=== PATIENT | female | born 2000 | race African-American/Black ===

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

== ENCOUNTER 2019-01-04 19:31 | Observation (INO) ==
[2019-01-04 20:17] LABS: Basophils # 0.1 K/mcL (0.0-0.2); Basophils % 0.4 %; Eosinophils # 0.2 K/mcL (0.0-0.6); Hematocrit 32.9 % (35.3-44.9); Hemoglobin 10.3 g/dL (11.5-15.4); Immature Granulocytes % 0.4 % (0-4); Lymphocytes # 2.1 K/mcL (0.6-4.6); Lymphocytes % 17.5 %; Mean Corpuscular HGB Conc 31.3 g/dL (31.6-35.5); Mean Corpuscular Hemoglobin 26.3 pg (28.0-33.3); Mean Corpuscular Volume 84.1 fL (83.0-100.0); Monocytes # 1.4 K/mcL (0.0-1.3); Monocytes % 11.3 %; Neutrophils # 8.3 K/mcL (1.6-8.9); Platelet Count 276 K/mcL (140-400); Red Blood Count 3.91 M/mcL (3.82-4.97); Red Cell Distribution Width 18.1 % (11.5-14.5); Segmented Neutrophils % 68.4 %; White Blood Count 12.1 K/mcL (4.3-11.1)
[2019-01-04] MEDS ORDERED: Ibuprofen 600 MG TABLET PO ONE (20:23)
[2019-01-04] MEDS ORDERED: 0.9 % Sodium Chloride 1,000 ML IVC ONE (20:23)
--- NOTE | 2019-01-04 20:32 | Emergency Department Note ---
Disposition Clinical Impression: Ureterolithiasis Disposition: Admitted As Inpatient Condition: Fair Referrals: NONE,PCP [Primary Care Provider] - Time of Disposition: 20:32 General Adult HPI - General Chief complaint: ED Abdominal Pain Stated complaint: Kidney stone Time Seen by Provider: 01/04/19 20:05 Source: patient Limitations: no limitations Nursing Notes Reviewed: Yes Vital Signs Reviewed: Yes - History of Present Illness Pain Scale: 8 - Related Data Previous Rx's Medication Instructions Recorded Vit37/Iron/Folic Acid 1 each PO QAM #30 tab.chew 04/01/18 [Prenata Chewable Tablet] Docusate [Colace] 100 mg PO BID #30 capsule 08/13/18 Ibuprofen [Motrin] 600 mg PO Q6HR PRN #30 tablet 08/13/18 Metoclopramide [Reglan] 10 mg IVP ONCE PRN vial 08/13/18 Ondansetron [Zofran] 4 mg IVP ONCE PRN vial 08/13/18 Simethicone [Gas-X] 80 mg PO TID PRN tab.chew 08/13/18 Cephalexin [Keflex] 500 mg PO BID #14 capsule 09/30/18 Ondansetron ODT [Zofran ODT] 4 mg SL Q6HR #10 tab.rapdis 09/30/18 Allergies Allergy/AdvReac Type Severity Reaction Status Date / Time Penicillins Allergy Rash Verified 09/29/18 22:46 Past Medical History - Past Medical History Medical history: Reports: no medical history Surgical history: Reports: Psychiatric history: Reports: anxiety, depression - Social History Smoking Status: Current every day smoker Smokeless Tobacco Status: No Alcohol use: Reports: none Drug use: Reports: marijuana Physical Exam - General Limitations: no limitations General appearance: alert, in no apparent distress Course Vital Signs Temperature 98.5 F 01/04/19 19:51 Pulse Rate 107 01/04/19 19:51 Respiratory Rate 16 01/04/19 19:51 Blood Pressure 120/76 01/04/19 19:51 O2 Sat by Pulse Oximetry 100 01/04/19 19:51 Temperature 98.5 F 01/04/19 19:51 Pulse Rate 107 01/04/19 19:51 Respiratory Rate 16 01/04/19 19:51 Blood Pressure 120/76 01/04/19 19:51 O2 Sat by Pulse Oximetry 100 01/04/19 19:51 Oxygen Delivery Oxygen Delivery Room Air Medical Decision Making - Lab Data Result diagrams: 01/04/19 20:06 Lab Results 01/04/19 Range/Units 20:06 WBC 12.1 H (4.3-11.1) K/mcL RBC 3.91 (3.82-4.97) M/mcL Hgb 10.3 L (11.5-15.4) g/dL Hct 32.9 L (35.3-44.9) % MCV 84.1 (83.0-100.0) fL MCH 26.3 L (28.0-33.3) pg MCHC 31.3 L (31.6-35.5) g/dL RDW 18.1 H (11.5-14.5) % Plt Count 276 (140-400) K/mcL MPV 10.0 (9.4-12.4) fL Immature Gran % 0.4 (0-4) % Seg Neutrophils % 68.4 % Lymphocytes % 17.5 % Monocytes % 11.3 % Eosinophils % 2.0 % Basophils % 0.4 % Neutrophils # 8.3 (1.6-8.9) K/mcL Lymphocytes # 2.1 (0.6-4.6) K/mcL Monocytes # 1.4 H (0.0-1.3) K/mcL Eosinophils # 0.2 (0.0-0.6) K/mcL Basophils # 0.1 (0.0-0.2) K/mcL Attestation Statement - Attestation Attestation: I examined this patient and my medical decision-making was reviewed with the [facility] Physician. I agree with the documented findings, disposition and treatment plan as described except to the extent set forth below. Patient presents to the ED with flank pain. Patient was seen at [facility] last night and diagnosed with a 14 mm ureteral stone. She was unable to secure outpatient follow-up until next week. She states she is in pain and she cannot tolerate it. On examination she appears comfortable. She does have CVA tenderness on percussion. Plan. Discussed with urology who will admit to their service.
--- NOTE | 2019-01-04 20:33 | Emergency Department Note ---
Disposition Clinical Impression: Ureterolithiasis Disposition: Admitted As Inpatient Condition: Fair Time of Disposition: 20:31 Abdominal Pain HPI - General Chief Complaint: ED Abdominal Pain Stated Complaint: Kidney stone Time Seen by Provider: 01/04/19 20:05 Source: patient Mode of arrival: ambulatory Limitations: no limitations Nursing Notes Reviewed: Yes Vital Signs Reviewed: Yes - History of Present Illness HPI Narrative: 18-year-old female history of kidney stones presents to the emergency department with worsening right flank pain. Symptoms started yesterday she was evaluated at outside facility where they discovered she had a 14 mm stone. She reports a history of kidney stones in the past that has not required any surgical intervention as they have passed on their own. She denies any urinary symptoms. She is been taken Percocet with minimal relief. She is always in constant pain. She reports some nausea denies any vomiting. Nothing seems to make it worse. She has an urology follow-up appointment until next week. History of cholecystectomy. Pt Subjective Complaint: flank pain Onset (ago): day(s) Consistency: intermittent Location: R flank Pain Scale: 8 - Related Data Home Medications Medication Instructions Recorded Confirmed No Known Home Drugs 01/04/19 01/04/19 Allergies Allergy/AdvReac Type Severity Reaction Status Date / Time Penicillins Allergy Rash Verified 09/29/18 22:46 All systems ED: reviewed and negative except as stated. Review of Systems: As Per HPI Constitutional: Denies: fever, chills Respiratory: Denies: dyspnea Gastrointestinal: Reports: nausea. Denies: vomiting, diarrhea Genitourinary: Denies: dysuria, hematuria Abdominal Pain PMH - Past Medical History Medical history: Reports: no medical history Female Surgical History: Reports: Adenoidectomy, , Tonsillectomy Psychiatric history: Reports: anxiety, depression - Social History Smoking status: Current every day smoker Alcohol use: Reports: none Drug use: Reports: marijuana Physical Exam - General Limitations: no limitations General appearance: alert, in distress (Appears uncomfortable favoring the right flank) - Head Head exam: atraumatic, normocephalic, normal inspection - Eye Eye exam: Present: normal appearance, EOMI - ENT ENT exam: normal exam, normal oropharynx, mucous membranes moist - Neck Neck exam: Present: normal inspection, full ROM, trachea midline - Chest Chest inspection: Present: normal inspection, symmetric chest wall rise - Respiratory Respiratory exam: Present: normal lung sounds bilaterally. Absent: respiratory distress, wheezes - Cardiovascular Cardiovascular exam: Present: regular rate, normal rhythm, normal heart sounds - Abdominal Exam Abdominal exam: Present: soft, Non-Tender, normal bowel sounds. Absent: tenderness, distention, guarding, rebound, rigidity, Kaur's sign, tenderness at McBurney's Point Abdominal tenderness: Absent: RUQ - Extremities Exam Extremities exam: Present: normal inspection, full ROM. Absent: tenderness, pedal edema - Back Exam Back exam: Present: normal inspection, full ROM, CVA tenderness (R). Absent: tenderness, CVA tenderness (L) - Neurological Exam Neurological exam: Present: alert, oriented X3 - Psychiatric Psychiatric exam: Present: normal affect, normal mood - Skin Skin exam: Present: warm, dry, intact, normal color. Absent: rash, cyanosis, diaphoresis Course Course Narrative: Patient presents with known right kidney stone seen on CT at outside facility. She had brought her disc from outside facility which we will upload to our radiology department. She has printed pictures that show the measurements of the stone. She presents for worsening pain. Will obtain an IV given her some fluids for symptom control. Will evaluate for any evidence of acute kidney injury as well as urinary tract infection. Will consult with urology for possible stent placement or stone removal. She is agreeable to this plan. - Consultations Consultation #1: Okay to admit to urologist Dr. Willis for kidney stone. Vital Signs Temperature 98.5 F 01/04/19 19:51 Pulse Rate 107 01/04/19 19:51 Respiratory Rate 16 01/04/19 19:51 Blood Pressure 120/76 01/04/19 19:51 O2 Sat by Pulse Oximetry 100 01/04/19 19:51 Temperature 98.5 F 01/04/19 19:51 Pulse Rate 107 01/04/19 19:51 Respiratory Rate 16 01/04/19 19:51 Blood Pressure 120/76 01/04/19 19:51 O2 Sat by Pulse Oximetry 100 01/04/19 19:51 Oxygen Delivery Oxygen Delivery Room Air Abdominal Pain - MDM Narrative Medical decision making narrative: Patient was discussed with my attending physician who agrees with ED management and final disposition. They independently evaluated the patient. Please refer to their attestation to this encounter for additional information. This note was generated by [employer] voice recognition software and as a result grammatical or spelling errors may occur using this program. - Differential Diagnosis Differential Diagnosis: Likely: calculus of kidney - Medical Records Medical records reviewed: Yes I reviewed the patient's medical records. - Lab Data Lab results reviewed: Yes I reviewed the patient's lab results. Result diagrams: 01/04/19 20:06 01/04/19 20:06 Lab Results 01/04/19 01/04/19 Range/Units 20:06 20:06 WBC 12.1 H (4.3-11.1) K/mcL RBC 3.91 (3.82-4.97) M/mcL Hgb 10.3 L (11.5-15.4) g/dL Hct 32.9 L (35.3-44.9) % MCV 84.1 (83.0-100.0) fL MCH 26.3 L (28.0-33.3) pg MCHC 31.3 L (31.6-35.5) g/dL RDW 18.1 H (11.5-14.5) % Plt Count 276 (140-400) K/mcL MPV 10.0 (9.4-12.4) fL Immature Gran % 0.4 (0-4) % Seg Neutrophils % 68.4 % Lymphocytes % 17.5 % Monocytes % 11.3 % Eosinophils % 2.0 % Basophils % 0.4 % Neutrophils # 8.3 (1.6-8.9) K/mcL Lymphocytes # 2.1 (0.6-4.6) K/mcL Monocytes # 1.4 H (0.0-1.3) K/mcL Eosinophils # 0.2 (0.0-0.6) K/mcL Basophils # 0.1 (0.0-0.2) K/mcL Sodium 135 L (136-145) mEq/L Potassium 3.4 L (3.5-5.1) mEq/L Chloride 107 (98-107) mEq/L Carbon Dioxide 25 (23-29) mEq/L BUN 13 (6-20) mg/dL Creatinine 1.25 H (0.60-1.20) mg/dL Est GFR ( Amer) > 60 Est GFR (Non-Af Amer) 55 BUN/Creatinine Ratio 10 (6-26) Glucose 67 L (70-105) mg/dL Calculated Osmolality 278 L (280-300) Calcium 9.0 (8.6-10.3) mg/dL Total Bilirubin 0.4 (0.3-1.0) mg/dL Direct Bilirubin 0.1 (0.0-0.2) mg/dL Indirect Bilirubin 0.3 (0.0-1.2) mg/dL AST 12 L (13-39) Units/L ALT 10 (7-52) Units/L Alkaline Phosphatase 72 (34-104) Units/L Serum Total Protein 6.5 (6.4-8.9) g/dL Albumin 3.9 (3.5-5.7) g/dL Globulin 2.6 (2.4-3.5) g/dL Albumin/Globulin Ratio 1.5 (1.1-2.2) Amylase 48 (29-103) Units/L Lipase 15 (11-82) Units/L
[2019-01-04] MEDS ORDERED: *HR* FentaNYL (PF) 100 MCG/2 ML VIAL IVP ONE (20:36)
[2019-01-04 20:37] LABS: Alanine Aminotransferase 10 Units/L (7-52); Albumin 3.9 g/dL (3.5-5.7); Albumin/Globulin Ratio 1.5 (1.1-2.2); Alkaline Phosphatase 72 Units/L (34-104); Amylase 48 Units/L (29-103); Aspartate Amino Transferase 12 Units/L (13-39); BUN/Creatinine Ratio 10 (6-26); Bilirubin,Direct 0.1 mg/dL (0.0-0.2); Bilirubin,Indirect 0.3 mg/dL (0.0-1.2); Bilirubin,Total 0.4 mg/dL (0.3-1.0); Blood Urea Nitrogen 13 mg/dL (6-20); Carbon Dioxide 25 mEq/L (23-29); Chloride 107 mEq/L (98-107); Globulin 2.6 g/dL (2.4-3.5); Glucose 67 mg/dL (70-105); Lipase 15 Units/L (11-82); Osmolality,Calculated 278 (280-300); Potassium 3.4 mEq/L (3.5-5.1); Sodium 135 mEq/L (136-145); Total Protein 6.5 g/dL (6.4-8.9); eGFR For African Americans > 60; eGFR For Non-African Americans 55
[2019-01-04] MEDS ORDERED: Ondansetron 4 MG/2 ML VIAL IVP PRN (21:08)
[2019-01-04] MEDS ORDERED: *HR* Promethazine 25 MG/ML VIAL IVP PRN (21:08)
[2019-01-04] MEDS ORDERED: Naloxone 0.4 MG/ML INJ IVP PRN (21:08)
[2019-01-04] MEDS ORDERED: *HR* Belladonna Alkaloids/Opium 30 MG RECTAL SUPPOSITORY RC PRN (21:08)
[2019-01-04] MEDS ORDERED: Acetaminophen IV 1,000 MG/100 ML INFUS..BTL IVPB PRN (21:08)
[2019-01-04] MEDS ORDERED: *HR* OxyCODONE Immed Rel 5 MG TABLET PO PRN (21:08)
[2019-01-04] MEDS ORDERED: Hyoscyamine SL 0.125 MG TAB.SUBL SL PRN (21:08)
[2019-01-04] MEDS ORDERED: *HR* HYDROcodone/Acet 5/325 mg TABLET PO PRN (21:08)
--- NOTE | 2019-01-04 21:20 | Urology History & Physical ---
Date of Encounter: 01/05/19 Time of Encounter: 21:18 Assessment and Plan (1) Ureteral stone with hydronephrosis Current Visit: Yes Status: Acute will proceed with cystoscopy retrograde pyelogram and JJ stent placement. this will relieve obstruction. will require staged management of the stone. (2) Flank pain Current Visit: Yes Status: Acute hopefully stent will resolve the discomfort (3) Leukocytosis Current Visit: Yes Status: Acute UA with culture. Levaquin started. rocephin was given in the ER. may be reactive rather than infection Qualifiers: Leukocytosis type: other Qualified Code(s): D72.828 - Other elevated white blood cell count (4) Acute renal insufficiency Current Visit: Yes Status: Acute hydration and planned stent. avoid NSAIDS. one dose of toradol given in ER History of Present Illness Chief complaint: right flank pain HPI: Ms. Cortez is a 18 year old female with hx of stones. ER visit yesterday with a 14 mm proximal ureteral stone. pain continues and presents to [place] ER today. no fever. +nausea. doesnt feel well. Past Med Surg Social Fam HX - Past Medical History Medical history: no medical history Psychiatric history: anxiety, depression - Past Surgical History Surgical History: Additional surgical history: 2018, T&A - Social History Smoking Status: Current every day smoker Smokeless Tobacco Status: No Alcohol use: none Drug use: marijuana - Family History Father Family Member Ethnicity: Non- Living Status: Still Living Hx Family Cardiac Disorders: Yes (HTN) Hx Family Respiratory Disorders: No Hx Family Cancer: No Hx Family GI Disorders: No Hx Family Endocrine Disorder: No Hx Family Neuromuscular Disorders: No Hx Family Neurologic Disorders: No Hx Family HEENT Disorders: No Hx Family Autoimmune Disorders: No Medications and Allergies No Known Home Drugs 01/04/19 [History] Allergy/AdvReac Type Severity Reaction Status Date / Time Penicillins Allergy Rash Verified 09/29/18 22:46 Review of Systems - Constitutional fatigue, no fever(s) - EENT Nose, mouth and throat: no dizziness - Cardiovascular no chest pain - Respiratory no cough - Gastrointestinal abdominal pain, nausea - Genitourinary Genitourinary: flank pain - Musculoskeletal back pain, no numbness - Integumentary no erythema - Neurological no confusion - Psychiatric anxiety - Hematologic/Lymphatic no easy bleeding - Allergic/Immunologic no throat swelling Exam Initial Vital Signs Temp Pulse Resp BP Pulse Ox 98.5 F 107 16 120/76 100 01/04/19 19:51 01/04/19 19:51 01/04/19 19:51 01/04/19 19:51 01/04/19 19:51 - General physical appearance Present: well developed, no distress - Eyes Present: PERRL, conjunctiva is clear - ENT Present: normal nares, no congestion - Neck Present: no masses, no lymphadenopathy - Respiratory Present: normal respiratory effort - Cardiovascular Cardiovascular exam IM: RRR - Abdomen Abdomen: Present: soft, suprapubic tenderness - Integumentary Present: no rash - Neurologic Present: normal coordination. Absent: disoriented, confused - Additional Findings some CVA tenderness Urology Results - Labs 01/04/19 20:06 01/04/19 20:06 Abnormal lab results WBC 12.1 K/mcL (4.3-11.1) H 01/04/19 20:06 Hgb 10.3 g/dL (11.5-15.4) L 01/04/19 20:06 Hct 32.9 % (35.3-44.9) L 01/04/19 20:06 MCH 26.3 pg (28.0-33.3) L 01/04/19 20:06 MCHC 31.3 g/dL (31.6-35.5) L 01/04/19 20:06 RDW 18.1 % (11.5-14.5) H 01/04/19 20:06 Monocytes # 1.4 K/mcL (0.0-1.3) H 01/04/19 20:06 Sodium 135 mEq/L (136-145) L 01/04/19 20:06 Potassium 3.4 mEq/L (3.5-5.1) L 01/04/19 20:06 Creatinine 1.25 mg/dL (0.60-1.20) H 01/04/19 20:06 Glucose 67 mg/dL (70-105) L 01/04/19 20:06 Calculated Osmolality 278 (280-300) L 01/04/19 20:06 AST 12 Units/L (13-39) L 01/04/19 20:06 Diabetes panel 01/04/19 Range/Units 20:06 Sodium 135 L (136-145) mEq/L Potassium 3.4 L (3.5-5.1) mEq/L Chloride 107 (98-107) mEq/L Carbon Dioxide 25 (23-29) mEq/L BUN 13 (6-20) mg/dL Creatinine 1.25 H (0.60-1.20) mg/dL Glucose 67 L (70-105) mg/dL Calcium 9.0 (8.6-10.3) mg/dL AST 12 L (13-39) Units/L ALT 10 (7-52) Units/L Alkaline Phosphatase 72 (34-104) Units/L Albumin 3.9 (3.5-5.7) g/dL Calcium panel 01/04/19 Range/Units 20:06 Calcium 9.0 (8.6-10.3) mg/dL Albumin 3.9 (3.5-5.7) g/dL Pituitary panel 01/04/19 Range/Units 20:06 Sodium 135 L (136-145) mEq/L Potassium 3.4 L (3.5-5.1) mEq/L Chloride 107 (98-107) mEq/L Carbon Dioxide 25 (23-29) mEq/L BUN 13 (6-20) mg/dL Creatinine 1.25 H (0.60-1.20) mg/dL Glucose 67 L (70-105) mg/dL Calcium 9.0 (8.6-10.3) mg/dL Adrenal panel 01/04/19 Range/Units 20:06 Sodium 135 L (136-145) mEq/L Potassium 3.4 L (3.5-5.1) mEq/L Chloride 107 (98-107) mEq/L Carbon Dioxide 25 (23-29) mEq/L BUN 13 (6-20) mg/dL Creatinine 1.25 H (0.60-1.20) mg/dL Glucose 67 L (70-105) mg/dL Calcium 9.0 (8.6-10.3) mg/dL Total Bilirubin 0.4 (0.3-1.0) mg/dL AST 12 L (13-39) Units/L ALT 10 (7-52) Units/L Alkaline Phosphatase 72 (34-104) Units/L Albumin 3.9 (3.5-5.7) g/dL All other labs normal.
[2019-01-04] MEDS: 0.9 % Sodium Chloride 1,000 ML IVC SCH (21:36)
[2019-01-05 05:47] LABS: Bilirubin,Urine Negative (Negative); Blood,Urine Trace (Negative); Clarity,Urine Clear (Clear); Color,Urine Yellow (Yellow); Glucose,Urine (UA) Normal (Normal); Ketones,Urine Negative (Negative); Leukocyte Esterase,Urine Moderate (Negative); Nitrite,Urine Negative (Negative); PH,Urine 6.5 pH Units (5.0-8.0); Protein,Urine Negative (Neg-Trace); Specific Gravity,Urine 1.016 (1.010-1.025); Urobilinogen,Urine Normal (Normal)
[2019-01-05 05:48] LABS: Bacteria,Urine None Seen per hpf (None-Few); Hyaline Casts,Urine None Seen per lpf (None-Few); Squamous Epithelial Cell,Urine Many per lpf (None-Few); WBC,Urine 30-50 per hpf (0-3)
[2019-01-05] MEDS: 0.9 % Sodium Chloride 1,000 ML IVC SCH (08:30)
[2019-01-05] MEDS ORDERED: levoFLOXacin 500 MG TABLET PO SCH (09:00)
[2019-01-05] MEDS ORDERED: Albuterol 2.5 MG/3 ML NEBULIZER IH ONE (11:08)
[2019-01-05] MEDS ORDERED: Acetaminophen IV 1,000 MG/100 ML INFUS..BTL IVPB ONE (11:08)
--- NOTE | 2019-01-05 11:08 | Anesthesia Evaluation PreOp ---
Date of Encounter: 01/05/19 Time of Encounter: 11:40 - Past History Planned Operation: cystoscopy, stent Cardiac History: Denies any Significant Hx Pulmonary History: Smoker [employer] History: Denies Any Significant HX Other Medical History: Denies Any Significant HX Anesthesia History: No Prior Anesthetic Complications, Past Anesthesia Test: Negative Alcohol Use: none Drug use: marijuana (occasional) Medications and Allergies No Known Home Drugs 01/04/19 [History] Allergy/AdvReac Type Severity Reaction Status Date / Time Penicillins Allergy Rash Verified 09/29/18 22:46 - Meds/Allergy Pre-op Review Medications Reviewed: Yes Allergies Reviewed: Yes Beta Blockers on Current Med List: No Anesthesia Results - Labs 01/04/19 20:06 01/04/19 20:06 Anesthesia Exam Selected Entries 01/05/19 10:24 Temperature 98.4 F Pulse Rate 92 Respiratory Rate 15 Blood Pressure 111/70 O2 Sat by Pulse Oximetry 97 Weight: 82 kg. BMI 30 NPO (# of Hours): over 8 hours - HEENT Pupil (Motor): Pupils equal Mallampati: II Teeth: Normal Oral Opening: Greater than 3 - Cardiac Rhythm: Regular Murmur: None - Pulmonary Breath Sounds: bilateral Clear Respiratory Effort: Symmetrical Anesthesia Assess/Plan ASA Score: 2 Level of consciousness: Cooperative Anesthetic Plan: General Monitoring Plan: Standard Monitors Recovery Plan: PACU (Discussed GA, risks. Agreed to proceed.)
[2019-01-05] MEDS ORDERED: Albuterol 2.5 MG/3 ML NEBULIZER ONE (11:35)
[2019-01-05] MEDS ORDERED: Isovue-300 50 ML VIAL ONE (12:07)
[2019-01-05] MEDS ORDERED: Lidocaine -MPF 2% 2 ML VIAL ONE (12:49)
[2019-01-05] MEDS ORDERED: *HR* Midazolam HCl 2 MG/2 ML VIAL ONE (12:49)
[2019-01-05] MEDS ORDERED: Dexamethasone 4 MG/ML VIAL ONE (12:49)
[2019-01-05] MEDS ORDERED: *HR* Propofol 200 MG/20 ML VIAL IVP ONE (12:49)
[2019-01-05] MEDS ORDERED: *HR* FentaNYL (PF) 100 MCG/2 ML VIAL ONE (12:49)
[2019-01-05] MEDS ORDERED: Ondansetron 4 MG/2 ML VIAL ONE (12:49)
--- NOTE | 2019-01-05 12:59 | Operative Note ---
Date of procedure: 01/05/19 Pre-op diagnosis: 1.4 cm right UPJ stone Post-op diagnosis: same Procedure: right ESWL Anesthesia: GETA Surgeon: Corey Willis Was there an delivery driver assistant present: No Estimated blood loss (cc): 0 Specimen: none Condition: stable Disposition: PACU Procedure in Detail: PROCEDURE IN DETAIL: Patient was taken back to the operating room, positioned supine on the operating table. Anesthesia was applied without complication. They were moved into dorsal lithotomy. Careful attention was maintained to cushion all pressure points for patient's safety. They were prepped and draped in sterile fashion. Time-out was performed with the proper patient and pr ocedure. A 21-Italian rigid cystoscope was inserted into the bladder without difficulty. Systematic examination of bladder revealed no abnormalities. The ureteral orifice was cannulated using a 5-Italian ureteral Catheter and a retrograde pyelogram was performed using Isovue. A filling defect was identified which corresponded to the stone at the right UPJ.. At that point, a zip wire was placed through the 5-Italian and confirmed in the renal pelvis with fluoroscopy. The stone was quite impacted at this location but I was able to manipulate the stone back into the renal pelvis. A 4.8 x 26 ureteral stent was placed over the zip wire under fluoroscopy without complication. No dangle string was left attached.
--- NOTE | 2019-01-05 13:01 | Discharge Summary ---
Orders not resulted at time of discharge: Pending orders 01/05/19 05:05 Culture,Urine [RM] Stat Date of Encounter: 01/05/19 Time of Encounter: 13:01 - Discharge Diagnosis (1) Ureteral stone with hydronephrosis Priority: Primary Status: Resolved (2) Flank pain Priority: Secondary Status: Resolved (3) Leukocytosis Priority: Secondary Status: Suspected Qualifiers: Leukocytosis type: other Qualified Code(s): D72.828 - Other elevated white blood cell count (4) Acute renal insufficiency Priority: Secondary Status: Suspected - Hospital Course Hospital course: Ms. Cortez is a 18 year old female with a 1.4 cm right ureteropelvic junction stone with hydronephrosis and intractable pain. Status post ureteral s tent placement. Plan to discharge today as long as patient's vital signs are stable and pain remains controlled. We will plan outpatient surgery for the stone Time spent discussing smoking cessation with patient: 3 to 10 minutes - Time Spent with Patient Total time spent providing and/or coordinating discharge services: Less than 30 minutes Labs on day of discharge: Labs from last 24 hours 01/05/19 01/05/19 01/04/19 05:05 05:05 20:06 WBC RBC Hgb Hct MCV MCH MCHC RDW Plt Count MPV Immature Gran % Seg Neutrophils % Lymphocytes % Monocytes % Eosinophils % Basophils % Neutrophils # Lymphocytes # Monocytes # Eosinophils # Basophils # Sodium 135 L Potassium 3.4 L Chloride 107 Carbon Dioxide 25 BUN 13 Creatinine 1.25 H Est GFR ( Amer) > 60 Est GFR (Non-Af Amer) 55 BUN/Creatinine Ratio 10 Glucose 67 L Calculated Osmolality 278 L Calcium 9.0 Total Bilirubin 0.4 Direct Bilirubin 0.1 Indirect Bilirubin 0.3 AST 12 L ALT 10 Alkaline Phosphatase 72 Serum Total Protein 6.5 Albumin 3.9 Globulin 2.6 Albumin/Globulin Ratio 1.5 Amylase 48 Lipase 15 Urine Color Yellow Urine Clarity Clear Urine pH 6.5 Ur Specific [place] 1.016 Urine Protein Negative Urine Glucose (UA) Normal Urine Ketones Negative Urine Blood Trace H Urine Nitrite Negative Urine Bilirubin Negative Urine Urobilinogen Normal Ur Leukocyte Esterase Moderate H Urine Microscopic RBC 5-15 H Urine Microscopic WBC 30-50 H Ur Squamous Epith Cells Many H Urine Bacteria None Seen Hyaline Casts None Seen Ur Culture Indicated? YES A Urine Test Negative 01/04/19 20:06 WBC 12.1 H RBC 3.91 Hgb 10.3 L Hct 32.9 L MCV 84.1 MCH 26.3 L MCHC 31.3 L RDW 18.1 H Plt Count 276 MPV 10.0 Immature Gran % 0.4 Seg Neutrophils % 68.4 Lymphocytes % 17.5 Monocytes % 11.3 Eosinophils % 2.0 Basophils % 0.4 Neutrophils # 8.3 Lymphocytes # 2.1 Monocytes # 1.4 H Eosinophils # 0.2 Basophils # 0.1 Sodium Potassium Chloride Carbon Dioxide BUN Creatinine Est GFR ( Amer) Est GFR (Non-Af Amer) BUN/Creatinine Ratio Glucose Calculated Osmolality Calcium Total Bilirubin Direct Bilirubin Indirect Bilirubin AST ALT Alkaline Phosphatase Serum Total Protein Albumin Globulin Albumin/Globulin Ratio Amylase Lipase Urine Color Urine Clarity Urine pH Ur Specific [place] Urine Protein Urine Glucose (UA) Urine Ketones Urine Blood Urine Nitrite Urine Bilirubin Urine Urobilinogen Ur Leukocyte Esterase Urine Microscopic RBC Urine Microscopic WBC Ur Squamous Epith Cells Urine Bacteria Hyaline Casts Ur Culture Indicated? Urine Test Preliminary micro results at discharge 01/05/19 05:05 Urine Culture - Preliminary Urine,Clean Catch Culture is incubating. - Discharge Medications Prescriptions: New levoFLOXacin [Levaquin] 500 mg PO DAILY #7 tablet HYDROcodone/Acet 5/325 mg [[place] 5-325 mg] 1 tab PO Q4H PRN 5 Days #15 tablet PRN Reason: Mild To Moderate Pain Home Medications: HYDROcodone/Acet 5/325 mg [[place] 5-325 mg] 1 tab PO Q4H PRN 5 Days #15 tablet 01/05/19 [Rx] levoFLOXacin [Levaquin] 500 mg PO DAILY #7 tablet 01/05/19 [Rx] Allergies/Adverse Reactions: Allergy/AdvReac Type Severity Reaction Status Date / Time Penicillins Allergy Rash Verified 09/29/18 22:46 Date of admission: 01/04/19 20:37 Primary care physician: PCP NONE Discharging clinician: Corey Willis Anticipated date of discharge: 01/05/19 Exam Initial Vital Signs Temp Pulse Resp BP Pulse Ox 98.5 F 107 16 120/76 100 01/04/19 19:51 01/04/19 19:51 01/04/19 19:51 01/04/19 19:51 01/04/19 19:51 - General physical appearance Present: well developed, no distress - Patient Status Disposition: Home, Self-Care Condition: Good Functional capacity at discharge: independent ambulation Overall status at discharge: patient is progressing back to baseline - Discharge Instructions Follow Up With: Lila Booker MD [Partnered Physician] - Corey Willis MD [Partnered Physician] - (my office will call with followup surgery to address the stone) Additional Instructions: No activity restrictions. Expect some increase in urgency, frequency, burning with urination, blood in the urine with the stent in place My office will contact patient to schedule follow-up surgery for the kidney stone Call if symptoms are severe or fever over 101 degrees - Diet and Activity Activity: increase activity as tolerated Diet: advance to your usual diet
--- NOTE | 2019-01-05 13:27 | Anesthesia Evaluation Post Op ---
Date of Encounter: 01/05/19 Time of Encounter: 13:27 - Vital Signs Vital Signs: Vital Signs/O2 Sat, Most Current Temp Pulse Resp BP Pulse Ox 99.2 F 93 16 117/73 99 01/05/19 12:58 01/05/19 13:08 01/05/19 13:08 01/05/19 13:08 01/05/19 13:08 - Lungs Lungs: Clear Ascult./Percussion - Airway Airway: Non-obstructed - Cardiovascular Regular Rate - Mental Status Mental Status: Alert & Oriented, Answers Appropriately - Pain Pain Scale: 0 Pain Scale used: Numeric (1 - 10) - Nausea Vomiting Nausea Vomiting: Not Present - Hydration Hydration: Ice chips, Has not voided - Discharge PostOp Status: Transfer Patient to floor
[2019-01-05] MEDS ORDERED: *HR* Promethazine 25 MG/ML VIAL IVP PRN (13:37)
[2019-01-05] MEDS ORDERED: *HR* Belladonna Alkaloids/Opium 30 MG RECTAL SUPPOSITORY RC PRN (13:37)
[2019-01-05] MEDS ORDERED: *HR* HYDROcodone/Acet 5/325 mg TABLET PO PRN (13:37)
[2019-01-05] MEDS ORDERED: Ondansetron 4 MG/2 ML VIAL IVP PRN (13:37)
[2019-01-05] MEDS ORDERED: *HR* OxyCODONE Immed Rel 5 MG TABLET PO PRN (13:37)
[2019-01-05] MEDS ORDERED: Naloxone 0.4 MG/ML INJ IVP PRN (13:37)
[2019-01-05] MEDS ORDERED: Acetaminophen IV 1,000 MG/100 ML INFUS..BTL IVPB PRN (13:37)
[2019-01-05] MEDS ORDERED: Hyoscyamine SL 0.125 MG TAB.SUBL SL PRN (13:37)
[2019-01-05 14:55] VITALS: BP 134/87
[2019-01-06] MEDS ORDERED: levoFLOXacin 500 MG TABLET PO SCH (09:00)
== END 2019-01-05 15:33 | disposition home or self-care (01) ==
LOC: EMEROOARM 19:31 → 3ANU 19:31
PROVIDERS: ADMIT Urology; ATTEND Urology

== ENCOUNTER 2019-01-27 02:02 | Observation (INO) ==
[2019-01-27] MEDS ORDERED: 0.9 % Sodium Chloride 250 ML ONE (04:39)
[2019-01-27] MEDS ORDERED: Naloxone 0.4 MG/ML INJ IVP PRN ×2 (04:50→04:54)
[2019-01-27] MEDS ORDERED: Ondansetron 4 MG/2 ML VIAL IVP PRN (04:50)
[2019-01-27] MEDS ORDERED: Ketorolac 30 MG/ML VIAL IVP PRN (04:54)
[2019-01-27] MEDS ORDERED: 0.9 % Sodium Chloride 1,000 ML IVC SCH (05:00)
[2019-01-27 05:53] LABS: Bilirubin,Urine Negative (Negative); Blood,Urine Large (Negative); Clarity,Urine Cloudy (Clear); Color,Urine Yellow (Yellow); Glucose,Urine (UA) Normal (Normal); Ketones,Urine Negative (Negative); Leukocyte Esterase,Urine Small (Negative); Nitrite,Urine Negative (Negative); Protein,Urine 100 mg/dL (Neg-Trace); Specific Gravity,Urine > 1.030 (1.010-1.025); Urobilinogen,Urine Normal (Normal)
[2019-01-27 05:54] LABS: Bacteria,Urine None Seen per hpf (None-Few); Hyaline Casts,Urine None Seen per lpf (None-Few); RBC,Urine TNTC per hpf (0-3); Squamous Epithelial Cell,Urine Many per lpf (None-Few); WBC,Urine 15-30 per hpf (0-3)
[2019-01-27 06:35] LABS: Amphetamine Screen,Urine Positive ng/mL (Cutoff=1000); Barbiturate Screen,Urine Negative ng/mL (Cutoff=200)
[2019-01-27 06:37] LABS: Benzodiazepines Screen,Urine Negative ng/mL (Cutoff=300); Cannabinoid Screen,Urine Positive ng/mL (Cutoff = 50); Cocaine Screen,Urine Negative ng/mL (Cutoff= 300); Opiate Screen,Urine Negative ng/mL (Cutoff=300); Phencyclidine Screen,Urine Negative ng/mL (Cutoff=25)
[2019-01-27 07:32] LABS: Basophils % 0.2 %; Eosinophils # 0.2 K/mcL (0.0-0.6); Eosinophils % 3.1 %; Hematocrit 33.1 % (35.3-44.9); Hemoglobin 10.5 g/dL (11.5-15.4); Immature Granulocytes % 0.2 % (0-4); Mean Corpuscular HGB Conc 31.7 g/dL (31.6-35.5); Mean Corpuscular Hemoglobin 26.4 pg (28.0-33.3); Mean Corpuscular Volume 83.4 fL (83.0-100.0); Mean Platelet Volume 10.7 fL (9.4-12.4); Monocytes # 0.9 K/mcL (0.0-1.3); Monocytes % 17.3 %; Neutrophils # 1.9 K/mcL (1.6-8.9); Platelet Count 248 K/mcL (140-400); Red Blood Count 3.97 M/mcL (3.82-4.97); Red Cell Distribution Width 17.2 % (11.5-14.5); Segmented Neutrophils % 39.2 %; White Blood Count 4.9 K/mcL (4.3-11.1)
[2019-01-27 07:39] LABS: Prothrombin Time 11.6 Seconds (9.4-12.1)
[2019-01-27 07:42] LABS: Activated Partial Thrombo Time 28.1 Seconds (26.0-36.0)
[2019-01-27 07:50] LABS: Alanine Aminotransferase 11 Units/L (7-52); Albumin 3.6 g/dL (3.5-5.7); Albumin/Globulin Ratio 1.8 (1.1-2.2); Alkaline Phosphatase 64 Units/L (34-104); Aspartate Amino Transferase 10 Units/L (13-39); BUN/Creatinine Ratio 18 (6-26); Bilirubin,Total 0.3 mg/dL (0.3-1.0); Blood Urea Nitrogen 10 mg/dL (6-20); Calcium 7.8 mg/dL (8.6-10.3); Carbon Dioxide 18 mEq/L (23-29); Chloride 111 mEq/L (98-107); Glucose 86 mg/dL (70-105); Magnesium 1.1 mg/dL (1.6-2.6); Osmolality,Calculated 286 (280-300); Potassium 3.6 mEq/L (3.5-5.1); Sodium 139 mEq/L (136-145); Total Protein 5.6 g/dL (6.4-8.9); eGFR For African Americans > 60; eGFR For Non-African Americans > 60
[2019-01-27] MEDS ORDERED: MetroNIDAZOLE 500 MG/100 ML 500 MG/100 ML BAG IVPB SCH (08:00)
[2019-01-27] MEDS ORDERED: cefTRIAXone 1,000 MG in Water for inj. (sterile) 10 ML IVPB SCH (09:00)
[2019-01-27 12:04] VITALS: BP 117/76
== END 2019-01-27 13:34 | disposition home or self-care (01) ==
LOC: 3ANU → SUATTDRO 03:59
PROVIDERS: ADMIT Internal Medicine Nephrology; ATTEND Internal Medicine

== ENCOUNTER 2019-05-23 18:10 | Observation (INO) ==
[2019-05-23 20:20] LABS: Bilirubin,Urine Negative (Negative); Blood,Urine Large (Negative); Clarity,Urine Turbid (Clear); Color,Urine Yellow (Yellow); Glucose,Urine (UA) Normal (Normal); Ketones,Urine Negative (Negative); Leukocyte Esterase,Urine Large (Negative); Nitrite,Urine Negative (Negative); Protein,Urine 100 mg/dL (Neg-Trace); Specific Gravity,Urine 1.026 (1.010-1.025); Urobilinogen,Urine Normal (Normal)
[2019-05-23 20:22] LABS: Bacteria,Urine Few per hpf (None-Few); Hyaline Casts,Urine Few per lpf (None-Few); Squamous Epithelial Cell,Urine Many per lpf (None-Few); WBC,Urine TNTC per hpf (0-3)
[2019-05-23 20:22] LABS: Basophils # 0.1 K/mcL (0.0-0.2); Basophils % 0.9 %; Eosinophils # 0.1 K/mcL (0.0-0.6); Eosinophils % 0.8 %; Hematocrit 34.2 % (35.3-44.9); Hemoglobin 10.9 g/dL (11.5-15.4); Immature Granulocytes % 0.5 % (0-4); Lymphocytes # 3.9 K/mcL (0.6-4.6); Lymphocytes % 45.2 %; Mean Corpuscular HGB Conc 31.9 g/dL (31.6-35.5); Mean Corpuscular Hemoglobin 26.5 pg (28.0-33.3); Mean Platelet Volume 9.7 fL (9.4-12.4); Monocytes # 0.8 K/mcL (0.0-1.3); Monocytes % 9.4 %; Neutrophils # 3.7 K/mcL (1.6-8.9); Platelet Count 322 K/mcL (140-400); Red Blood Count 4.12 M/mcL (3.82-4.97); Red Cell Distribution Width 17.3 % (11.5-14.5); Segmented Neutrophils % 43.2 %; White Blood Count 8.6 K/mcL (4.3-11.1)
[2019-05-23 20:41] LABS: Alanine Aminotransferase 9 Units/L (7-52); Albumin 4.2 g/dL (3.5-5.7); Albumin/Globulin Ratio 1.4 (1.1-2.2); Alkaline Phosphatase 71 Units/L (34-104); Aspartate Amino Transferase 12 Units/L (13-39); BUN/Creatinine Ratio 21 (6-26); Bilirubin,Direct 0.1 mg/dL (0.0-0.2); Bilirubin,Indirect 0.2 mg/dL (0.0-1.0); Bilirubin,Total 0.3 mg/dL (0.3-1.0); Blood Urea Nitrogen 19 mg/dL (6-20); Calcium 9.1 mg/dL (8.6-10.3); Carbon Dioxide 26 mEq/L (23-29); Chloride 107 mEq/L (98-107); Globulin 2.9 g/dL (2.4-3.5); Glucose 86 mg/dL (70-105); Lipase 31 Units/L (11-82); Osmolality,Calculated 294 (280-300); Potassium 4.1 mEq/L (3.5-5.1); Sodium 141 mEq/L (136-145); Total Protein 7.1 g/dL (6.4-8.9); eGFR For African Americans > 60 (> 60); eGFR For Non-African Americans > 60 (> 60)
[2019-05-23 20:43] LABS: Mucus,Urine Few (Few)
[2019-05-23] MEDS ORDERED: Morphine Sulfate 2 MG/ML SYRINGE IVP ONE (21:27)
[2019-05-23] MEDS ORDERED: Ondansetron 4 MG/2 ML VIAL IVP ONE (21:27)
[2019-05-23] MEDS ORDERED: 0.9 % Sodium Chloride 1,000 ML IVC ONE (21:28)
[2019-05-24] MEDS ORDERED: Naloxone 0.4 MG/ML INJ IVP PRN (07:44)
[2019-05-24 10:33] VITALS: BP 96/60
[2019-05-24] MEDS ORDERED: Ketorolac 30 MG/ML VIAL IVP ONE (13:29)
== END 2019-05-24 15:09 | disposition home or self-care (01) ==
LOC: 3ANU 18:10 → EMEROOARM 18:10 → 3ANU 05-24 01:35
PROVIDERS: ADMIT Internal Medicine; ATTEND Internal Medicine